=== PATIENT | male | born 1965 | race Caucasian/White ===

== ENCOUNTER 2020-12-27 20:38 | Inpatient (IN) | payer MEDICARE ==
[~2020-12-27] VITALS: Ht 172.7 cm; Wt 73.5 kg
[2020-12-27] MEDS ORDERED: CYAN-51 PO (21:26)
[2020-12-27] MEDS ORDERED: FERR325T28 PO (21:26)
[2020-12-27] MEDS ORDERED: ASCO500T10 PO (21:26)
[2020-12-27] MEDS ORDERED: HEPA500034 SUBCUT (21:26)
[2020-12-27] MEDS ORDERED: ERYT3.5O24 EACHEYE (21:26)
[2020-12-27] MEDS ORDERED: METF-494 PO (21:34)
[2020-12-27] MEDS ORDERED: OLAN5TAB70 PO (21:34)
[2020-12-27] MEDS ORDERED: novolog (21:34)
[2020-12-27] MEDS ORDERED: MAG HYDROX/AL HYDROX/SIMETH 30 ML LIQUID UDC PO PRN (22:30)
[2020-12-27] MEDS ORDERED: ACETAMINOPHEN 325 MG TABLET PO PRN (22:30)
[2020-12-27] MEDS ORDERED: BLOOD SUGAR DIAGNOSTIC 1 EACH STRIP VI ONE (22:30)
[2020-12-27] MEDS ORDERED: MAGNESIUM HYDROXIDE 30 ML LIQUID UDC PO PRN (22:30)
[2020-12-27 22:39] VITALS: BP 136/92
--- NOTE | 2020-12-27 23:15 | NUR ---
GPS: Admitted to unit earlier a 55 yr.old male under the care of /. Pt.is on a 72 hour hold for GD. Pt.is alert to self and place. Has periods of confusion. Calm,cooperative for the most part. Ambulates with unsteady gait. Personal belongings list completed. Pt's advisement/pt's rights handbook given. Unit rules explained. Seizure/fall precautions observed. Will continue to monitor behavior and re-direct prn.
--- NOTE | 2020-12-28 01:51 | NUR ---
GPS: Pt.is awake at this time. Confused,restless and attempting to get out of bed for no reason when asked. Easily irritable when being re-directed. Refused prn meds.for sleep/anxiety when offered several times. Bed alarm on for safety. Will continue to monitor behavior for further escalation.
--- NOTE | 2020-12-28 06:46 | NUR ---
GPS: Pt.slept for 3.30 last night. Refused sleeping pill when offered several times for insomnia. Observed to be talking to self during the night. Incontinence care provided. Bed alarm on for safety. Will continue to monitor.
--- NOTE | 2020-12-28 06:53 | NUR ---
GPS: Pt.refused blood drawing scheduled this am despite explanation of risks vs benefits x3.
--- NOTE | 2020-12-28 07:30 | NUR ---
Received report from AMEYA Rubio. All questions, comments, and concerns addressed. Received patient awake, alert and oriented in assigned bed. Bed is in low and locked position.
[2020-12-28 07:50] VITALS: BP 127/72
[2020-12-28] MEDS ORDERED: OLANZAPINE 2.5 MG TABLET PO SCH (11:30)
[2020-12-28] MEDS: DIVALPROEX 250 MG TABLET.DR PO SCH ×3 (12:00→20:41)
--- NOTE | 2020-12-28 16:56 | NUR ---
Patient is alert to name only. Patient is isolative, withdrawn, guarded, and appears internally preoccupied. When speaking with patient, he laughs inappropriately and is noted with thought blocking. Patient only answers in "yes" or "no" responses. Noted with inappropriate affect. Patient denies SI/HI, denies AH/VH. Patient refused scheduled noon medication, he stated "nope". This designer/writer offered education about importance of taking medications as prescribed, but patient did not respond. Patient compliant with 1600 medication. Patient is able to ambulate independently. able to perform self care and ADL's independently. Patient is encouraged to participate in the unit groups and therapeutic milieu. Patient educated about impulse control and how to communicate needs appropriately to staff.
[2020-12-28] MEDS ORDERED: INSULIN REGULAR, HUMAN 300 UNIT/3 ML VIAL SQ PRN (17:15)
[2020-12-28] MEDS ORDERED: DEXTROSE 50% 50 ML DISP.SYRIN IV PRN (17:15)
[2020-12-28 17:22] VITALS: BP 124/72
[2020-12-28] MEDS: BLOOD SUGAR DIAGNOSTIC 1 EACH STRIP VI SCH (20:41)
[2020-12-28] MEDS ORDERED: OLANZAPINE 5 MG TABLET PO SCH (21:00)
[2020-12-28 21:10] VITALS: BP 134/85
--- NOTE | 2020-12-28 21:30 | NUR ---
RECEIVED PATIENT IN HIS ROOM IN BED. HE IS NOTED A/O X 2 (HE KNOWS HIS NAME AND THIS PLACE) HE IS NOTED WITH DELUSIONAL THINKING AND GRANDIOSE, "I AM GOD". HE IS NOTED RESPONDING TO INTERNAL STIMULI, HE TALKS TO HIMSELF, BIZARRE BX. IMPAIRED INSIGHT AND JUDGMENT IS NOTED TO THE REASON FOR HIS ADMISSION TO [facility]. PATIENT REQUIRES REDIRECTION FOR MEDICATION COMPLIANT AND PLAN OF CARE. SHE DENIED SI, HE IS ABLE TYO VERBALLY CFS. V/S STABLE. HE WAS GIVEN PO FLUIDS AND SNACKS. HE IS REASSURED FOR HIS SAFETY. SAFETY AND FALL PRECAUTION IN PLACE. WILL CONTINUE TO MONITOR.
[2020-12-29] MEDS: BLOOD SUGAR DIAGNOSTIC 1 EACH STRIP VI SCH ×4 (07:45→20:30)
[2020-12-29 08:02] VITALS: BP 120/66
[2020-12-29] MEDS: ASCORBIC ACID 500 MG TABLET PO SCH (08:45)
[2020-12-29] MEDS: OLANZAPINE 2.5 MG TABLET PO SCH ×2 (08:45→12:19)
[2020-12-29] MEDS: CYANOCOBALAMIN 1,000 MCG TABLET PO SCH (08:45)
[2020-12-29] MEDS: FERROUS SULFATE 325 MG TABEC PO SCH (08:45)
[2020-12-29] MEDS: DIVALPROEX 250 MG TABLET.DR PO SCH ×3 (08:45→18:24)
[2020-12-29] MEDS: METFORMIN XR 500 MG TAB.SR.24H PO SCH ×2 (08:47→18:24)
--- NOTE | 2020-12-29 11:44 | NUR ---
Clinical Pump Service Supervisor Note SW attempted to communicate with patient to discuss treatment planning and discharge but was unable to speak with patient. Patient stated "No" when SW asked if they could speak. Patient appeared confused.
--- NOTE | 2020-12-29 12:42 | NUR ---
Gps/Triage Clinician- Remains in bed, not interactive, prompted to take routine meds.Patient confused , oriented to self, speech appeared to be incoherent, laughing inappropriately. . Encouraged to eat, feed self.
--- NOTE | 2020-12-29 15:32 | NUR ---
SW Family Contact SW called and spoke with patient's father Leoncio Valdivia ([phone]) and discussed treatment and discharge plan. Leoncio Valdivia provided collateral information (see sw assessment). Leoncio Valdivia stated that patient was previously at [facility] but would like more option for patient's discharge. SW will coordinate appropriate placement options.
[2020-12-29 16:00] VITALS: BP 117/76
[2020-12-29 20:00] VITALS: BP 111/75
[2020-12-29] MEDS ORDERED: OLANZAPINE 5 MG TABLET PO SCH (21:00)
[2020-12-29] MEDS: TEMAZEPAM 7.5 MG CAPSULE PO PRN (22:05)
[2020-12-30] MEDS: BLOOD SUGAR DIAGNOSTIC 1 EACH STRIP VI SCH (06:13)
--- NOTE | 2020-12-30 06:24 | NUR ---
GPS: Pt.slept 8.45 last night. Confused,forgetful and disorganized. Non-sensical at times and acts bizarre. Fall precautions observed. Showered by staff and assisted back to bed. B.S at this time is 101mg/dl. Will continue to monitor.
[2020-12-30 07:30] VITALS: BP 121/77
[2020-12-30] MEDS: DIVALPROEX 250 MG TABLET.DR PO SCH ×3 (08:43→17:13)
[2020-12-30] MEDS: METFORMIN XR 500 MG TAB.SR.24H PO SCH ×2 (08:43→17:14)
[2020-12-30] MEDS: OLANZAPINE 2.5 MG TABLET PO SCH ×2 (08:43→12:56)
[2020-12-30] MEDS: FERROUS SULFATE 325 MG TABEC PO SCH (08:44)
[2020-12-30] MEDS: CYANOCOBALAMIN 1,000 MCG TABLET PO SCH (08:45)
[2020-12-30] MEDS: ASCORBIC ACID 500 MG TABLET PO SCH (08:45)
--- NOTE | 2020-12-30 14:33 | NUR ---
Clinical Social Work Note Late Entry Patient was unable to sign treatment plan due to disorganized thought process.
[2020-12-30 16:00] VITALS: BP 117/82
--- NOTE | 2020-12-30 16:00 | NUR ---
Gps/Lumber Yard Worker- Stayed in his room most of the the, family came in to visit during the visiting hours. Safety reviewed and emphasized.
[2020-12-30 20:22] VITALS: BP 107/63
[2020-12-30] MEDS: OLANZAPINE 5 MG TABLET PO SCH (20:39)
--- NOTE | 2020-12-30 22:00 | NUR ---
received to care, lying in bed, pleasant upon approach, appearing distracted by internal stimuli. stated hearing voices, but would not elaborate. compliant with medications. refused snacks, but took PO fluids. as of 2199, he appearas to be asleep. no distress noted. will continue to monitor closely.
--- NOTE | 2020-12-31 06:16 | NUR ---
Slept 7.75 hours. AM care, and shower was given. he is now back in bed, asleep. no distress noted.
[2020-12-31 07:30] VITALS: BP 131/84
[2020-12-31 08:38] LABS: MEAN CORPUSCULAR HEMOGLOBIN 31.1 uug (23.8-33.4); MEAN CORPUSCULAR VOLUME 88.3 fL (73.0-96.2); PLATELET COUNT (AUTO) 230 K/uL (152-348)
[2020-12-31 08:55] LABS: BILIRUBIN,TOTAL 0.5 mg/dL (0.2-1.0); CREATININE 1.3 mg/dL (0.6-1.3); POTASSIUM 4.3 mmol/L (3.5-5.1); TOTAL PROTEIN, SERUM 7.7 g/dL (6.4-8.2)
[2020-12-31] MEDS: DIVALPROEX 250 MG TABLET.DR PO SCH ×3 (08:55→17:03)
[2020-12-31] MEDS: FERROUS SULFATE 325 MG TABEC PO SCH (08:55)
[2020-12-31] MEDS: METFORMIN XR 500 MG TAB.SR.24H PO SCH ×2 (08:55→17:03)
[2020-12-31] MEDS: CYANOCOBALAMIN 1,000 MCG TABLET PO SCH (08:56)
[2020-12-31] MEDS: ASCORBIC ACID 500 MG TABLET PO SCH (08:56)
[2020-12-31] MEDS: OLANZAPINE 2.5 MG TABLET PO SCH (12:39)
[2020-12-31 16:00] VITALS: BP 150/97
[2020-12-31 20:00] VITALS: BP 112/71
[2020-12-31] MEDS: OLANZAPINE 5 MG TABLET PO SCH (20:52)
--- NOTE | 2021-01-01 07:20 | NUR ---
PATIENT SLEPT 9.30 HRS, PATIENT COOPERATIVE WITH CARE AND MEDICATIONS, CONT TO MONITOR.
[2021-01-01 07:30] VITALS: BP 127/89
[2021-01-01] MEDS: FERROUS SULFATE 325 MG TABEC PO SCH (08:50)
[2021-01-01] MEDS: CYANOCOBALAMIN 1,000 MCG TABLET PO SCH (08:50)
[2021-01-01] MEDS: DIVALPROEX 250 MG TABLET.DR PO SCH ×3 (08:50→16:31)
[2021-01-01] MEDS: ASCORBIC ACID 500 MG TABLET PO SCH (08:50)
[2021-01-01] MEDS: OLANZAPINE 2.5 MG TABLET PO SCH ×2 (08:50→12:16)
[2021-01-01] MEDS: METFORMIN XR 500 MG TAB.SR.24H PO SCH (08:50)
[2021-01-01] MEDS ORDERED: METF-440 PO (11:09)
--- NOTE | 2021-01-01 13:30 | NUR ---
Gps/Supervisor Display Fabrication- Patient stayed in the dinning room during lunch, ambulates around, noted no devices, safety reviewed. Answers to simple questions , but incoherent and confused answers. Observed talking/mumbling , and laughing by himself. .
[2021-01-01] MEDS: LORAZEPAM 0.5 MG TABLET PO PRN (14:58)
[2021-01-01 16:00] VITALS: BP 102/59
[2021-01-01] MEDS: METFORMIN HCL 500 MG TABLET PO SCH (17:07)
[2021-01-01 20:00] VITALS: BP 126/84
[2021-01-01] MEDS: OLANZAPINE 5 MG TABLET PO SCH (20:05)
[2021-01-02] MEDS: TEMAZEPAM 7.5 MG CAPSULE PO PRN (01:33)
--- NOTE | 2021-01-02 06:07 | NUR ---
GPS: Asleep at this time during rounds. Has slept for 8.45 so far. Remains confused,talks to self and laughs inappropriately at times. Re-directed prn. No increased agitation noted. Fall precautions observed. Will continue to monitor.
[2021-01-02 08:34] VITALS: BP 119/89
[2021-01-02] MEDS: METFORMIN HCL 500 MG TABLET PO SCH ×2 (08:56→17:03)
[2021-01-02] MEDS: CYANOCOBALAMIN 1,000 MCG TABLET PO SCH (08:56)
[2021-01-02] MEDS: DIVALPROEX 250 MG TABLET.DR PO SCH ×2 (08:56→12:54)
[2021-01-02] MEDS: ASCORBIC ACID 500 MG TABLET PO SCH (08:56)
[2021-01-02] MEDS: FERROUS SULFATE 325 MG TABEC PO SCH (08:56)
[2021-01-02] MEDS: OLANZAPINE 2.5 MG TABLET PO SCH ×2 (08:56→12:54)
--- NOTE | 2021-01-02 11:11 | NUR ---
SW SNF Referral SW faxed patient's referral packet to [facility] [address] [facility], [place] [address] ( ) attention to [facility] ([phone]) for review.
--- NOTE | 2021-01-02 11:33 | NUR ---
SW SNF Contact SW spoke with Rupali ([phone]), nurse coordinator at [facility] [id number] [place] [id number] ([phone]) who confirmed pt is accepted at [facility].
[2021-01-02 16:19] VITALS: BP 116/79
[2021-01-02] MEDS: DIVALPROEX 500 MG TABLET.DR PO SCH (17:03)
--- NOTE | 2021-01-02 17:26 | NUR ---
GPS: Nursing Notes: Thought Disorder: Patient is awake and responding to his name, cooperative with nursing care, isolative in his room, refusing to participate in therapeutic groups, responding to internal stimuli by talking to unseen others, gets easily anxious when redirected, stating "I am okay..", encourage to participate in therapeutic groups, but stated "Maybe later..", continue to be isolative, internally preoccupied, compliant with his medications, unable to formulate a viable plan for self care, continue with treatment plan.
[2021-01-02 20:00] VITALS: BP 135/82
[2021-01-02] MEDS: OLANZAPINE 5 MG TABLET PO SCH (20:05)
[2021-01-03] MEDS: TEMAZEPAM 7.5 MG CAPSULE PO PRN (01:48)
[2021-01-03 07:30] VITALS: BP 121/80
[2021-01-03] MEDS: ASCORBIC ACID 500 MG TABLET PO SCH (08:54)
[2021-01-03] MEDS: FERROUS SULFATE 325 MG TABEC PO SCH (08:54)
[2021-01-03] MEDS: METFORMIN HCL 500 MG TABLET PO SCH ×2 (08:54→17:11)
[2021-01-03] MEDS: DIVALPROEX 250 MG TABLET.DR PO SCH ×2 (08:54→13:18)
[2021-01-03] MEDS: CYANOCOBALAMIN 1,000 MCG TABLET PO SCH (08:54)
[2021-01-03] MEDS: OLANZAPINE 2.5 MG TABLET PO SCH ×2 (08:55→13:18)
--- NOTE | 2021-01-03 09:33 | NUR ---
PROBABLE CAUSE HEARING: Patient's [facility] was today and the 5250 hold was upheld for GD.
[2021-01-03 15:23] VITALS: BP 102/70
[2021-01-03] MEDS: DIVALPROEX 500 MG TABLET.DR PO SCH (16:31)
[2021-01-03 20:17] VITALS: BP 120/81
[2021-01-03] MEDS: OLANZAPINE 5 MG TABLET PO SCH (20:17)
[2021-01-04 07:30] VITALS: BP 129/66
[2021-01-04] MEDS: ASCORBIC ACID 500 MG TABLET PO SCH (08:43)
[2021-01-04] MEDS: OLANZAPINE 2.5 MG TABLET PO SCH ×2 (08:43→12:46)
[2021-01-04] MEDS: CYANOCOBALAMIN 1,000 MCG TABLET PO SCH (08:43)
[2021-01-04] MEDS: DIVALPROEX 250 MG TABLET.DR PO SCH ×2 (08:43→12:46)
[2021-01-04] MEDS: METFORMIN HCL 500 MG TABLET PO SCH ×2 (08:44→17:41)
[2021-01-04] MEDS: FERROUS SULFATE 325 MG TABEC PO SCH (08:44)
--- NOTE | 2021-01-04 12:54 | NUR ---
SW Family Contact SW spoke with pt's father Leoncio Valdivia ([phone]) to discuss treatment and discharge plan.
[2021-01-04 16:00] VITALS: BP 117/76
--- NOTE | 2021-01-04 16:45 | NUR ---
GPS: PT ALERT AND ORIENTED TO HIMSELF ONLY. PT ISOLATIVE, STAYS IN HIS ROOM AND ENCOURAGED TO JOIN GROUP THERAPY.
[2021-01-04] MEDS: DIVALPROEX 500 MG TABLET.DR PO SCH (17:41)
[2021-01-04 20:32] VITALS: BP 126/85
[2021-01-04] MEDS: OLANZAPINE 5 MG TABLET PO SCH (20:51)
--- NOTE | 2021-01-04 23:00 | NUR ---
Received to care, lying in bed, with a bright affect, and pleasant upon approach. Compliant with medications, and staff direction. Bedtime snacks were given. Denied hearing voices or other psychotic sx, but was observed to be talking to self, later. As of now, he appears to be asleep. no distress noted. Will continue to monitor closely.
--- NOTE | 2021-01-05 06:04 | NUR ---
slept 6.0 hours. assisted with AM care, and shower, then went back to sleep. no distress noted.
[2021-01-05 07:55] VITALS: BP 115/70
[2021-01-05] MEDS: ASCORBIC ACID 500 MG TABLET PO SCH (08:23)
[2021-01-05] MEDS: DIVALPROEX 250 MG TABLET.DR PO SCH ×2 (08:23→12:48)
[2021-01-05] MEDS: CYANOCOBALAMIN 1,000 MCG TABLET PO SCH (08:23)
[2021-01-05] MEDS: OLANZAPINE 2.5 MG TABLET PO SCH ×2 (08:23→12:48)
[2021-01-05] MEDS: FERROUS SULFATE 325 MG TABEC PO SCH (08:23)
[2021-01-05] MEDS: METFORMIN HCL 500 MG TABLET PO SCH ×2 (08:23→17:18)
--- NOTE | 2021-01-05 10:55 | NUR ---
Received patient at 0700H. Compliant with meds. No distress identified. Will endorse to the other nurse for continuity of care.
[2021-01-05 16:17] VITALS: BP 136/80
[2021-01-05] MEDS: DIVALPROEX 500 MG TABLET.DR PO SCH (17:18)
[2021-01-05 20:00] VITALS: BP 121/59
[2021-01-05] MEDS: OLANZAPINE 5 MG TABLET PO SCH (20:17)
[2021-01-05] MEDS: TEMAZEPAM 7.5 MG CAPSULE PO PRN (22:54)
--- NOTE | 2021-01-06 00:37 | NUR ---
Received to care, lying in bed, with a bright affect, and pleasant upon approach. Compliant with medications, and staff direction. Bedtime snacks were given. stated hearing voices, but would not elaborate. PRN Restoril was given for insomnia, at 2254. by 2329, he was asleep. As of now, remains asleep. no distress noted. Will continue to monitor closely.
--- NOTE | 2021-01-06 06:00 | NUR ---
slept 8.0 hours. no distress noted.
[2021-01-06 07:30] VITALS: BP 127/58
[2021-01-06] MEDS: CYANOCOBALAMIN 1,000 MCG TABLET PO SCH (08:22)
[2021-01-06] MEDS: DIVALPROEX 250 MG TABLET.DR PO SCH ×2 (08:22→12:00)
[2021-01-06] MEDS: FERROUS SULFATE 325 MG TABEC PO SCH (08:22)
[2021-01-06] MEDS: OLANZAPINE 2.5 MG TABLET PO SCH ×2 (08:22→12:00)
[2021-01-06] MEDS: ASCORBIC ACID 500 MG TABLET PO SCH (08:22)
[2021-01-06] MEDS: METFORMIN HCL 500 MG TABLET PO SCH ×2 (08:22→18:12)
[2021-01-06 16:05] VITALS: BP 142/85
[2021-01-06] MEDS: DIVALPROEX 500 MG TABLET.DR PO SCH (16:28)
--- NOTE | 2021-01-06 18:57 | NUR ---
GPS: PT ALERT AND VERBALLY RESPONSIVE WHEN BEING ASKED AND COHERENTLY ANSWERS BACK. PT NOTED TALKING TO SELF IN 2 VOICES LIKE TALKING TO EACH OTHER. PT SEEN BY PSYCHIATRIST TODAY. GIVEN MEDICATION AND TAKES IT EASILY. DENIES PAIN OR DISCOMFORT. NO AGITATION NOTED.
[2021-01-06 20:08] VITALS: BP 148/90
[2021-01-06] MEDS: OLANZAPINE 5 MG TABLET PO SCH (21:17)
[2021-01-07] MEDS: LORAZEPAM 0.5 MG TABLET PO PRN (04:39)
--- NOTE | 2021-01-07 04:53 | NUR ---
Received to care lying in bed, pleasant and cooperative. observed to be talking to self, using several different voices. Compliant with bedtime medications, but declined PRN medications for anxiety, or insomnia. Has been awake since around 0100, talking to self. PRN ativan was given at 0439, and went back to bed. will continue to monitor closely.
--- NOTE | 2021-01-07 07:00 | NUR ---
slept 4.25 hours. is now asleep, again. no distress noted.
[2021-01-07 07:42] VITALS: BP 141/69
[2021-01-07] MEDS: FERROUS SULFATE 325 MG TABEC PO SCH (08:51)
[2021-01-07] MEDS: OLANZAPINE 2.5 MG TABLET PO SCH ×2 (08:51→12:35)
[2021-01-07] MEDS: METFORMIN HCL 500 MG TABLET PO SCH ×2 (08:51→17:01)
[2021-01-07] MEDS: CYANOCOBALAMIN 1,000 MCG TABLET PO SCH (08:51)
[2021-01-07] MEDS: ASCORBIC ACID 500 MG TABLET PO SCH (08:51)
[2021-01-07] MEDS: DIVALPROEX 250 MG TABLET.DR PO SCH ×2 (08:51→12:35)
--- NOTE | 2021-01-07 09:31 | NUR ---
GPS: RECEIVED PT ON BED. PT HAD BREAKFAST. COMPLIANT WITH MEDICATION AND TOLERATED WELL. PT WITH EPISODE OF TALKING TO HIMSELF. BUT WHEN APPROACHED AND ASK, HE ANSWERS BACK IN A RIGHT MANNER.
[2021-01-07 16:18] VITALS: BP 136/91
[2021-01-07] MEDS: DIVALPROEX 500 MG TABLET.DR PO SCH (17:01)
[2021-01-07 20:17] VITALS: BP 142/76
[2021-01-07] MEDS: OLANZAPINE 5 MG TABLET PO SCH (20:43)
[2021-01-07] MEDS: TEMAZEPAM 7.5 MG CAPSULE PO PRN (22:36)
[2021-01-08 08:02] VITALS: BP 114/75
[2021-01-08] MEDS: METFORMIN HCL 500 MG TABLET PO SCH ×2 (08:23→17:24)
[2021-01-08] MEDS: DIVALPROEX 250 MG TABLET.DR PO SCH ×2 (08:23→12:40)
[2021-01-08] MEDS: CYANOCOBALAMIN 1,000 MCG TABLET PO SCH (08:23)
[2021-01-08] MEDS: ASCORBIC ACID 500 MG TABLET PO SCH (08:23)
[2021-01-08] MEDS: FERROUS SULFATE 325 MG TABEC PO SCH (08:23)
[2021-01-08] MEDS: OLANZAPINE 2.5 MG TABLET PO SCH ×2 (08:26→12:40)
[2021-01-08 16:48] VITALS: BP 110/77
[2021-01-08] MEDS: DIVALPROEX 500 MG TABLET.DR PO SCH (17:24)
[2021-01-08 20:15] VITALS: BP 112/64
[2021-01-08] MEDS: OLANZAPINE 5 MG TABLET PO SCH (20:32)
--- NOTE | 2021-01-08 21:00 | NUR ---
RECEIVED PATIENT IN HIS ROOM IN BED. HE IS NOTED AWAKE A/O X 2. HE IS CALM AND PLEASANT UPON APPROACHED. HE IS NOTED WITH POOR INSIGHT AND POOR JUDGMENT, HE IS NOTED TALKING TO HIMSELF AND RESPONDING TO INTERNAL STIMULI. UPON INTERVIEW, HE STATED, "I AM HERE BECAUSE I HAVE TOO MANY MEDICAL THINGS". PATIENT IS NOTED WITH FLAT AFFECT, MOOD IS LABILE. HE IS REASSURED FOR HIS SAFETY. SAFETY AND FALL PRECAUTION IN PLACE. V/S STABLE AT THIS TIME. HE CONTINUE COMPLIANT WITH MEDICATION REGIMENT DIET AND CARE. HE WAS GIVEN PO FLUIDS AND SNACKS. WILL CONTINUE TO MONITOR
[2021-01-09 07:48] VITALS: BP 120/83
[2021-01-09] MEDS: CYANOCOBALAMIN 1,000 MCG TABLET PO SCH (09:27)
[2021-01-09] MEDS: FERROUS SULFATE 325 MG TABEC PO SCH (09:27)
[2021-01-09] MEDS: OLANZAPINE 2.5 MG TABLET PO SCH ×2 (09:27→13:06)
[2021-01-09] MEDS: ASCORBIC ACID 500 MG TABLET PO SCH (09:27)
[2021-01-09] MEDS: METFORMIN HCL 500 MG TABLET PO SCH ×2 (09:27→16:45)
[2021-01-09] MEDS: DIVALPROEX 250 MG TABLET.DR PO SCH ×2 (09:27→13:06)
[2021-01-09 15:51] VITALS: BP 126/81
[2021-01-09] MEDS: DIVALPROEX 500 MG TABLET.DR PO SCH (16:45)
--- NOTE | 2021-01-09 17:13 | NUR ---
patient is alert and oriented x3, denies any SI/HI , vital sign stable.patient remain isolative withdrawn no interaction with other. attendance in group activity ,aware of discharge plan in am ,will continue close monitoring.
[2021-01-09] MEDS: OLANZAPINE 5 MG TABLET PO SCH (20:27)
[2021-01-09 21:04] VITALS: BP 130/87
[2021-01-09] MEDS: TEMAZEPAM 7.5 MG CAPSULE PO PRN (23:04)
--- NOTE | 2021-01-09 23:05 | NUR ---
Patient was noted talking to himself and crying with tears on his face. When asked what was wrong, he said, "nothing is wrong, nothing". patient was given temazepam 7.5mg PO PRN. will continue to monitor.
[2021-01-10 08:00] VITALS: BP 107/72
--- NOTE | 2021-01-10 08:37 | NUR ---
INDIRA Discharge Note: Pt will be [facility] to [facility] [address] [place] [address] ([phone]) via ambulance at 1PM. INDIRA spoke with [facility] who confirmed they are ready to accept patient today. Pts father Leoncio Valdivia ([phone]) was informed of discharge plan. Patient is alert and oriented x3. Pt is unable to plan for self-care at this time, however, is willing to accept care at [facility]. Patient denies suicidal or homicidal ideation. Patient presents with appropriate mood and congruent affect. Patient will follow-up at the facility with Dr. Camacho Psychiatrist and Dr. Mcgowan Visual Display Associate at [facility].
[2021-01-10] MEDS: OLANZAPINE 2.5 MG TABLET PO SCH ×2 (08:48→12:27)
[2021-01-10] MEDS: CYANOCOBALAMIN 1,000 MCG TABLET PO SCH (08:48)
[2021-01-10] MEDS: FERROUS SULFATE 325 MG TABEC PO SCH (08:49)
[2021-01-10] MEDS: METFORMIN HCL 500 MG TABLET PO SCH (08:49)
[2021-01-10] MEDS: ASCORBIC ACID 500 MG TABLET PO SCH (08:49)
[2021-01-10] MEDS: DIVALPROEX 250 MG TABLET.DR PO SCH ×2 (08:49→12:26)
--- NOTE | 2021-01-10 14:02 | NUR ---
Orders were received from Dr. Camacho to discharge this patient today. Patient was discharged to [facility] at [address] [facility] via ambulance at 1 pm. Report was given to [facility] at 12:00 from [facility] ([facility]). Patient's father Leoncio Valdivia was informed of discharge plan and came to the hospital around 12:00 to talk to the social services for more informations. Patient is alert, oriented X 2 - 3 to person, place. Pt. affect is cooperative, calm, quiet. Pt. is compliant to medications. Denies SI/HI AH/VH.
== END 2021-01-10 13:00 | DRG 885 ==
LOC: ER 20:43 → GPS 21:44
PROVIDERS: ADMIT Psychiatry & Neurology Psychosomatic Medicine; ATTEND Nurse Practitioner Acute Care
DX: F25.0 Schizoaffective disorder, bipolar type (principal); F01.50 Vascular dementia, unspecified severity, without behavioral disturbance, psychotic disturbance, mood disturbance, and anxiety; E11.9 Type 2 diabetes mellitus without complications; Z91.14 Patient's other noncompliance with medication regimen; Z20.822 Contact with and (suspected) exposure to COVID-19; F12.10 Cannabis abuse, uncomplicated; Z79.84 Long term (current) use of oral hypoglycemic drugs; Z91.19 Patient's noncompliance with other medical treatment and regimen; F29 Unspecified psychosis not due to a substance or known physiological condition; R56.9 Unspecified convulsions; R26.89 Other abnormalities of gait and mobility; F32.9 Major depressive disorder, single episode, unspecified; G51.0 Bell's palsy; R90.89 Other abnormal findings on diagnostic imaging of central nervous system; Z72.89 Other problems related to lifestyle
CPT/HCPCS: 36415; 80164; 85025; 97161; A4663; J1815; J3490

== ENCOUNTER 2024-04-14 19:58 | Inpatient (IN) | payer MEDICARE, OTHER ==
[~2024-04-14] VITALS: Ht 182.9 cm; Wt 70.3 kg
[~2024-04-14 19:58] MED LIST: ASCO500T10 PO; CYAN-51 PO; ERYT3.5O24 EACHEYE; FERR325T28 PO; HEPA500034 SUBCUT; METF-440 PO; novolog
[2024-04-14] MEDS ORDERED: BENZ1TAB7 PO (22:00)
[2024-04-14] MEDS ORDERED: LORA-258 PO (22:00)
[2024-04-14] MEDS ORDERED: CLOZ25TA PO (22:00)
[2024-04-14] MEDS ORDERED: DOCU100C36 PO (22:00)
[2024-04-14] MEDS ORDERED: TEMA7.5C PO (22:00)
[2024-04-14] MEDS ORDERED: CRAN450T9 PO (22:00)
[2024-04-14] MEDS ORDERED: FERR-56 PO (22:00)
[2024-04-14] MEDS ORDERED: MEGE20TA4 PO (22:00)
[2024-04-14] MEDS ORDERED: LISI2.5T14 PO (22:00)
[2024-04-14] MEDS ORDERED: CHOL100045 PO (22:00)
[2024-04-14] MEDS ORDERED: MAGN400O6 PO (22:00)
[2024-04-14] MEDS ORDERED: ACET-3117 PO (22:00)
[2024-04-14] MEDS ORDERED: LORAZEPAM 1 MG TABLET PO PRN (23:00)
[2024-04-14] MEDS ORDERED: MAG HYDROX/AL HYDROX/SIMETH 30 ML LIQUID UDC PO PRN (23:00)
[2024-04-14] MEDS ORDERED: TEMAZEPAM 7.5 MG CAPSULE PO PRN ×2 (23:00)
[2024-04-14] MEDS ORDERED: ACETAMINOPHEN 325 MG TABLET PO PRN (23:00)
[2024-04-14] MEDS ORDERED: MAGNESIUM HYDROXIDE 30 ML LIQUID UDC PO PRN (23:00)
[2024-04-14 23:13] VITALS: BP 112/63; TEMP 98; O2SAT 85
[2024-04-14] MEDS: BLOOD SUGAR DIAGNOSTIC 1 EACH STRIP VI ONE (23:17)
[2024-04-14] MEDS: LORAZEPAM 1 MG TABLET PO PRN (23:22)
[2024-04-15] MEDS ORDERED: CLOZ100T PO (04:59)
[2024-04-15] MEDS ORDERED: LORAZEPAM 1 MG TABLET PO PRN (05:00)
[2024-04-15 07:56] VITALS: BP 100/56; TEMP 98.1; O2SAT 94
[2024-04-15] MEDS ORDERED: NA P133E RC (09:06)
[2024-04-15] MEDS ORDERED: MULT-1045 PO (09:06)
[2024-04-15] MEDS ORDERED: BISA10SU95 RC (09:06)
[2024-04-15] MEDS ORDERED: CYAN-51 PO (09:06)
[2024-04-15] MEDS ORDERED: CHOL-35 PO (09:06)
[2024-04-15] MEDS ORDERED: ACET325T53 PO (09:06)
[2024-04-15] MEDS ORDERED: BISACODYL 10 MG SUPP.RECT RC PRN (10:45)
[2024-04-15] MEDS: FERROUS SULFATE 325 MG TABEC PO SCH (10:58)
[2024-04-15] MEDS: CHOLECALCIFEROL 1,000 UNIT TABLET PO SCH (10:58)
[2024-04-15] MEDS: MEGESTROL ACETATE 20 MG TABLET PO SCH (10:58)
[2024-04-15] MEDS: MULTIVITAMINS,THERAPEUTIC TABLET PO SCH (10:58)
[2024-04-15 15:34] VITALS: BP 94/61; TEMP 98.4; O2SAT 97
[2024-04-15] MEDS: CYANOCOBALAMIN 1,000 MCG TABLET PO SCH (17:24)
[2024-04-15] MEDS: CLOZAPINE 25 MG TABLET PO SCH ×2 (17:25→20:46)
[2024-04-15 20:00] VITALS: BP 96/68; TEMP 97.6; O2SAT 94
[2024-04-15] MEDS: LISINOPRIL 5 MG TABLET PO SCH (20:15)
[2024-04-15] MEDS: DOCUSATE SODIUM 100 MG CAPSULE PO SCH (20:15)
[2024-04-16 08:10] VITALS: BP 107/68; TEMP 97.3; O2SAT 98
[2024-04-16 16:12] VITALS: BP 117/74; TEMP 97.2; O2SAT 98
[2024-04-16 20:00] VITALS: BP 110/65; TEMP 98.3; O2SAT 97
[2024-04-17 08:20] VITALS: BP 109/64; TEMP 98.1; O2SAT 100
[2024-04-17 16:18] VITALS: BP 106/73; TEMP 98.3; O2SAT 100
[2024-04-17 20:00] VITALS: BP 106/66; TEMP 98.3; O2SAT 93
[2024-04-17] MEDS: CLOZAPINE 100 MG TABLET PO SCH (21:04)
[2024-04-18] MEDS: TEMAZEPAM 7.5 MG CAPSULE PO PRN (01:57)
[2024-04-18 08:16] VITALS: BP 110/80; TEMP 98.3; O2SAT 99
[2024-04-18 08:51] LABS: THYROID STIMULATING HORMONE 1.708 mIU/mL (0.358-3.740)
[2024-04-18 16:18] VITALS: BP 89/62; TEMP 98.1; O2SAT 96
[2024-04-18 17:27] VITALS: BP 108/66; O2SAT 98
[2024-04-18 20:00] VITALS: BP 101/54; TEMP 98.4; O2SAT 97
[2024-04-19 10:19] VITALS: BP 121/72; TEMP 97.6; O2SAT 98
[2024-04-19 16:11] VITALS: BP 110/77; TEMP 98.3; O2SAT 97
[2024-04-19 19:52] VITALS: BP 97/61; TEMP 98.3
[2024-04-19] MEDS: CLOZAPINE 100 MG TABLET PO SCH (20:59)
[2024-04-20 08:12] VITALS: BP 106/45; TEMP 98; O2SAT 97
[2024-04-20 08:52] LABS: BASOPHILS % (AUTO) 0.5 % (0.0-2.0); EOSINOPHILS # (AUTO) 0.1 K/uL (0.0-0.7); EOSINOPHILS % (AUTO) 1.8 % (0.0-7.0); HEMATOCRIT 34.9 % (36.7-47.1); HEMOGLOBIN 12.2 g/dL (12.5-16.3); LYMPHOCYTES # (AUTO) 1.5 K/uL (0.8-4.8); LYMPHOCYTES % (AUTO) 32.4 % (20.5-51.5); MEAN CORPUSCULAR HEMOGLOBIN 30.4 uug (23.8-33.4); MEAN CORPUSCULAR HGB CONC 35 g/dL (32.5-36.3); MEAN CORPUSCULAR VOLUME 87.2 fL (73.0-96.2); MONOCYTES # (AUTO) 0.4 K/uL (0.1-1.30); MONOCYTES % (AUTO) 9.7 % (0.0-11.0); NEUTROPHILS # (AUTO) 2.6 K/uL (1.8-8.9); NEUTROPHILS % (AUTO) 55.6 % (38.5-71.5); PLATELET COUNT (AUTO) 176 K/uL (152-348); RED CELL DISTRIBUTION WIDTH 14.1 % (12.1-16.2); WHITE BLOOD COUNT (AUTO) 4.6 K/uL (3.6-10.2)
[2024-04-20 09:01] LABS: DIFFERENTIAL COMMENT 1
[2024-04-20 09:04] LABS: ALANINE AMINOTRANSFERASE 22 U/L (16-63); ALBUMIN 3.4 g/dL (3.4-5.0); ALKALINE PHOSPHATASE 69 U/L (50-136); BILIRUBIN,TOTAL 0.5 mg/dL (0.2-1.0); CALCIUM 8.7 mg/dL (8.5-10.1); CARBON DIOXIDE 24 mmol/L (21-32); CHLORIDE 106 mmol/L (98-107); CHOLESTEROL 106 mg/dL (<200); CREATININE 1.4 mg/dL (0.6-1.3); GLUCOSE 107 mg/dL (74-106); HDL CHOLESTEROL 33 mg/dL (40-60); MAGNESIUM 2.1 mg/dL (1.8-2.4); PHOSPHOROUS 3.2 mg/dL (2.5-4.9); POTASSIUM 4.3 mmol/L (3.5-5.1); SODIUM SERUM 140 mmol/L (136-145); TOTAL PROTEIN, SERUM 7.1 g/dL (6.4-8.2); TRIGLYCERIDES 29 MG/DL (30-150); UREA NITROGEN, BLOOD 32 mg/dL (7-18)
[2024-04-20 09:11] LABS: ASPARTATE AMINOTRANSFERASE < 5 U/L (15-37)
[2024-04-20 16:16] VITALS: BP 127/75; TEMP 98.1; O2SAT 100
[2024-04-20 20:00] VITALS: BP 138/84; TEMP 98.2; O2SAT 99
[2024-04-20] MEDS: CLOZAPINE 100 MG TABLET PO SCH (20:12)
[2024-04-21 07:58] VITALS: BP 100/78; TEMP 98; O2SAT 98
[2024-04-21 08:06] LABS: BASOPHILS % (AUTO) 0.5 % (0.0-2.0); EOSINOPHILS # (AUTO) 0.1 K/uL (0.0-0.7); EOSINOPHILS % (AUTO) 2.2 % (0.0-7.0); HEMATOCRIT 36.4 % (36.7-47.1); HEMOGLOBIN 12.6 g/dL (12.5-16.3); LYMPHOCYTES # (AUTO) 1.4 K/uL (0.8-4.8); LYMPHOCYTES % (AUTO) 25.3 % (20.5-51.5); MEAN CORPUSCULAR HEMOGLOBIN 30.5 uug (23.8-33.4); MEAN CORPUSCULAR HGB CONC 35 g/dL (32.5-36.3); MEAN CORPUSCULAR VOLUME 87.7 fL (73.0-96.2); MONOCYTES # (AUTO) 0.7 K/uL (0.1-1.30); MONOCYTES % (AUTO) 11.8 % (0.0-11.0); NEUTROPHILS # (AUTO) 3.3 K/uL (1.8-8.9); NEUTROPHILS % (AUTO) 60.2 % (38.5-71.5); PLATELET COUNT (AUTO) 191 K/uL (152-348); RED BLOOD CELL COUNT(AUTO) 4.15 MIL/uL (4.06-5.63); RED CELL DISTRIBUTION WIDTH 14.1 % (12.1-16.2); WHITE BLOOD COUNT (AUTO) 5.5 K/uL (3.6-10.2)
[2024-04-21 08:32] LABS: DIFFERENTIAL COMMENT 1
[2024-04-21 15:55] VITALS: BP 100/70; TEMP 98; O2SAT 98
[2024-04-21 20:00] VITALS: BP 85/58; TEMP 98; O2SAT 100
[2024-04-21] MEDS: LORAZEPAM 0.5 MG TABLET PO PRN (20:28)
[2024-04-22 08:01] VITALS: BP 100/64; TEMP 98; O2SAT 100
[2024-04-22 08:33] LABS: BASOPHILS % (AUTO) 0.4 % (0.0-2.0); EOSINOPHILS # (AUTO) 0.1 K/uL (0.0-0.7); EOSINOPHILS % (AUTO) 1.6 % (0.0-7.0); HEMATOCRIT 36.9 % (36.7-47.1); HEMOGLOBIN 12.6 g/dL (12.5-16.3); LYMPHOCYTES # (AUTO) 1.6 K/uL (0.8-4.8); LYMPHOCYTES % (AUTO) 25.9 % (20.5-51.5); MEAN CORPUSCULAR HEMOGLOBIN 30.1 uug (23.8-33.4); MEAN CORPUSCULAR HGB CONC 34 g/dL (32.5-36.3); MEAN CORPUSCULAR VOLUME 87.9 fL (73.0-96.2); MONOCYTES # (AUTO) 0.6 K/uL (0.1-1.30); MONOCYTES % (AUTO) 9.6 % (0.0-11.0); NEUTROPHILS # (AUTO) 3.8 K/uL (1.8-8.9); NEUTROPHILS % (AUTO) 62.5 % (38.5-71.5); PLATELET COUNT (AUTO) 200 K/uL (152-348); RED BLOOD CELL COUNT(AUTO) 4.19 MIL/uL (4.06-5.63); RED CELL DISTRIBUTION WIDTH 14.3 % (12.1-16.2); WHITE BLOOD COUNT (AUTO) 6.1 K/uL (3.6-10.2)
[2024-04-22 08:39] LABS: DIFFERENTIAL COMMENT 1
[2024-04-22 08:50] LABS: ALBUMIN 3.8 g/dL (3.4-5.0); BILIRUBIN,TOTAL 0.5 mg/dL (0.2-1.0); CALCIUM 8.7 mg/dL (8.5-10.1); CREATININE 1.5 mg/dL (0.6-1.3); MAGNESIUM 2.1 mg/dL (1.8-2.4); PHOSPHOROUS 3.6 mg/dL (2.5-4.9); POTASSIUM 4.5 mmol/L (3.5-5.1); TOTAL PROTEIN, SERUM 6.9 g/dL (6.4-8.2)
[2024-04-22 15:56] VITALS: BP 90/60; TEMP 98; O2SAT 99
[2024-04-22 20:00] VITALS: BP 99/63; TEMP 97.2; O2SAT 97
[2024-04-23 07:06] LABS: PTH, INTACT 19 pg/mL (15-65)
[2024-04-23 08:00] VITALS: BP 129/82; TEMP 98.6; O2SAT 99
[2024-04-23 15:06] LABS: A/G RATIO 1.2 (0.7-1.7); ALBUMIN 3.4 g/dL (2.9-4.4); ALPHA-1-GLOBULIN 0.3 g/dL (0.0-0.4); ALPHA-2-GLOBULIN 0.8 g/dL (0.4-1.0); BETA GLOBULIN 0.9 g/dL (0.7-1.3); GAMMA GLOBULIN 0.9 g/dL (0.4-1.8); GLOBULIN, TOTAL 2.9 g/dL (2.2-3.9); M-SPIKE Not Observed g/dL (Not Observed); PROTEIN, TOTAL 6.3 g/dL (6.0-8.5)
[2024-04-23 15:39] VITALS: BP 115/71; TEMP 98; O2SAT 98
[2024-04-23 20:00] VITALS: BP 127/80; TEMP 98; O2SAT 95
[2024-04-24 08:18] VITALS: BP 116/73; TEMP 97.3; O2SAT 98
[2024-04-24 16:30] VITALS: BP 103/64; TEMP 98.1; O2SAT 96
[2024-04-24 20:00] VITALS: BP 114/68; TEMP 98.4; O2SAT 95
[2024-04-25 08:18] VITALS: BP 121/91; TEMP 97.8; O2SAT 100
[2024-04-25 16:18] VITALS: BP 98/69; TEMP 98.1; O2SAT 100
[2024-04-25 20:09] VITALS: BP_SYST 106; BP_SYST 114; BP_DIAS 76; BP_DIAS 77; TEMP 98; O2SAT 100
[2024-04-26 07:48] LABS: BASOPHILS % (AUTO) 0.4 % (0.0-2.0); EOSINOPHILS # (AUTO) 0.1 K/uL (0.0-0.7); EOSINOPHILS % (AUTO) 2.2 % (0.0-7.0); HEMATOCRIT 35.7 % (36.7-47.1); HEMOGLOBIN 12.3 g/dL (12.5-16.3); LYMPHOCYTES # (AUTO) 1.8 K/uL (0.8-4.8); LYMPHOCYTES % (AUTO) 33.1 % (20.5-51.5); MEAN CORPUSCULAR HEMOGLOBIN 30.1 uug (23.8-33.4); MEAN CORPUSCULAR HGB CONC 34 g/dL (32.5-36.3); MEAN CORPUSCULAR VOLUME 87.5 fL (73.0-96.2); MONOCYTES # (AUTO) 0.5 K/uL (0.1-1.30); MONOCYTES % (AUTO) 9.5 % (0.0-11.0); NEUTROPHILS % (AUTO) 54.8 % (38.5-71.5); PLATELET COUNT (AUTO) 197 K/uL (152-348); RED BLOOD CELL COUNT(AUTO) 4.07 MIL/uL (4.06-5.63); RED CELL DISTRIBUTION WIDTH 14.1 % (12.1-16.2); WHITE BLOOD COUNT (AUTO) 5.5 K/uL (3.6-10.2)
[2024-04-26 07:59] LABS: DIFFERENTIAL COMMENT 1
[2024-04-26 08:10] LABS: ALBUMIN 3.4 g/dL (3.4-5.0); BILIRUBIN,TOTAL 0.5 mg/dL (0.2-1.0); CALCIUM 8.6 mg/dL (8.5-10.1); CREATININE 1.3 mg/dL (0.6-1.3); MAGNESIUM 2.1 mg/dL (1.8-2.4); POTASSIUM 4.2 mmol/L (3.5-5.1); TOTAL PROTEIN, SERUM 6.6 g/dL (6.4-8.2)
[2024-04-26 08:15] VITALS: BP 125/86; TEMP 98.4; O2SAT 98
[2024-04-26 15:49] VITALS: BP 115/65; TEMP 99; O2SAT 99
[2024-04-26 22:12] VITALS: BP 94/65; TEMP 98.2; O2SAT 99
[2024-04-27 08:20] VITALS: BP 118/60; TEMP 98.3; O2SAT 98
== END 2024-04-27 14:30 | DRG 885 ==
LOC: ER 19:58 → GPS 22:45
PROVIDERS: ADMIT Psychiatry & Neurology Psychosomatic Medicine; ATTEND Nurse Practitioner Acute Care
DX: F20.9 Schizophrenia, unspecified (principal); N18.9 Chronic kidney disease, unspecified; N17.0 Acute kidney failure with tubular necrosis; G92.8 Other toxic encephalopathy; E11.9 Type 2 diabetes mellitus without complications; G51.0 Bell's palsy; Z91.148 Patient's other noncompliance with medication regimen for other reason; M89.8X9 Other specified disorders of bone, unspecified site; G40.909 Epilepsy, unspecified, not intractable, without status epilepticus; F10.11 Alcohol abuse, in remission; F12.11 Cannabis abuse, in remission; F31.5 Bipolar disorder, current episode depressed, severe, with psychotic features; R41.9 Unspecified symptoms and signs involving cognitive functions and awareness; E11.22 Type 2 diabetes mellitus with diabetic chronic kidney disease; Z79.84 Long term (current) use of oral hypoglycemic drugs; I12.9 Hypertensive chronic kidney disease with stage 1 through stage 4 chronic kidney disease, or unspecified chronic kidney disease
CPT/HCPCS: 36415; 83735; 83970; 84100; 84155; 84165; 84443; 85025; A4606; A4663